=== PATIENT | male | born 1955 | race Caucasian/White ===

== ENCOUNTER 2016-07-12 18:49 | Inpatient (IN) | payer OTHER ==
[~2016-07-12] VITALS: Ht 175.3 cm; Wt 87.1 kg
[2016-07-12] MEDS ORDERED: ATOR40TA PO (19:20)
[2016-07-12] MEDS ORDERED: MORP-38 PO (19:20)
[2016-07-12] MEDS ORDERED: JANU50TA8 PO (19:20)
[2016-07-12] MEDS ORDERED: GLIM4TAB PO (19:20)
[2016-07-12] MEDS ORDERED: OXYC1SOL PO (19:20)
[2016-07-12] MEDS ORDERED: ASPI1TAB PO (19:20)
[2016-07-12] MEDS ORDERED: ASPIRIN 81 MG CHEW TABLET PO ONE (20:30)
[2016-07-12 20:45] LABS: BASO % 0.4 % (0.0-1.0); EOS # 0.1 K/mm3 (0.0-0.50); EOS % 1.3 % (0.0-3.0); LARGE UNSTAINED CELL # 0.1 K/mm3 (0.0-0.4); LARGE UNSTAINED CELL % 1.7 % (0.0-4.0); LYMPH # 1.2 K/mm3 (1.5-4.5); LYMPH % 17.6 % (24.0-44.0); MEAN CORPUSCULAR HGB CONC 34.7 g/dl (32.0-36.5); MEAN CORPUSCULAR VOLUME 92.4 fl (80.0-96.0); MONO # 0.5 K/mm3 (0.0-0.8); MONO % 7.1 % (0.0-5.0); NEUTROPHILS # 4.8 K/mm3 (1.8-7.7); PLATELET COUNT, AUTOMATED 157 k/mm3 (150-450); RED CELL DISTRIBUTION WIDTH 13.4 % (11.5-14.5); WHITE BLOOD COUNT 6.7 K/mm3 (4.0-10.0)
[2016-07-12 20:51] LABS: ANION GAP 8 MEQ/L (8-16); BLOOD UREA NITROGEN 10 MG/DL (7-18); CALCIUM LEVEL 8.6 MG/DL (8.8-10.2); CARBON DIOXIDE LEVEL 26 MEQ/L (21-32); CHLORIDE LEVEL 103 MEQ/L (98-107); CREATININE FOR GFR 1.22 MG/DL (0.70-1.30); GLOMERULAR FILTRATION RATE > 60.0 (>49); GLUCOSE, FASTING 313 MG/DL (80-110); POTASSIUM SERUM 4.4 MEQ/L (3.5-5.1); SODIUM LEVEL 137 MEQ/L (136-145)
--- NOTE | 2016-07-12 21:01 | REP ---
Clinical: Dizziness. Altered mental status. Comparison: 11/07/2013 . Findings: Age-related atrophy and microvascular ischemic changes are appreciated. The ventricles and sulci are symmetric. Nunez-white differentiation is maintained. There is no evidence for acute intracranial hemorrhage, mass/mass effect, pathology or infarction. No extra-axial fluid collection. Calvarium is intact. Paranasal sinuses and mastoid air cells are clear. Impression: Age related atrophy and microvascular ischemic changes. No acute intracranial hemorrhage, infarction, or mass/mass effect. Signed by Reginaldo Srinivasan MD 07/12/2016 08:53 P
[2016-07-12] MEDS ORDERED: methylPREDNISolone INJ 125 MG/2 ML VIAL (J2930) IV ONE (21:15)
[2016-07-12] MEDS ORDERED: diphenhydrAMINE INJ 50MG/ML VIAL (J1200) IV ONE (21:15)
[2016-07-12] MEDS ORDERED: FAMOTIDINE IV BAG 20 MG in APPROPRIATE DILUENT 1 EA IV ONE (21:15)
[2016-07-12] MEDS ORDERED: OXYC-517 PO (23:53)
[2016-07-12] MEDS ORDERED: ASPI81TAEC PO (23:53)
[2016-07-12] MEDS ORDERED: NITR4TASL SL (23:53)
[2016-07-12] MEDS ORDERED: INSULANT SC (23:53)
[2016-07-12] MEDS ORDERED: VITA100066 PO (23:53)
[2016-07-12] MEDS ORDERED: EPIP0.3I2 INJ (23:54)
[2016-07-13] VITALS (13 sets, daily range): BP systolic 96–176; BP diastolic 52–92
[2016-07-13] MEDS ORDERED: ISOVUE-370 76% 100ML VIAL (Q9967) As Ordered ONE (00:11)
[2016-07-13] MEDS ORDERED: ONDANSETRON 4MG/2ML VIAL (J2405) IV PRN (00:45)
--- NOTE | 2016-07-13 00:50 | REPUSA ---
CLINICAL HISTORY: Chest pain, exclude PE. TECHNIQUE: Multiple incremental axial, coronal and oblique images are obtained from the thoracic inle t to the upper abdomen. Intravenous contrast material was administered as per pulmonary embolism prot ocol. COMMENTS: There is excellent opacification of pulmonary arterial system without evidence for pulmonary embolism . Aorta is of normal caliber without evidence for dissection or aneurysm. There is no evidence of pleural or parenchymal mass. Bilateral basilar atelectatic pulmonary changes. There are no pleural effusions. There is no evidence of hilar or mediastinal lymphadenopathy. The he art and great vessels are within normal limits. Images of the upper abdomen demonstrate no evidence of adrenal mass. The bony structures are free of lytic or blastic lesions. Multilevel degenerative changes are seen in volving the visualized thoracolumbar spine. Moderate diffuse thyromegaly. Mild hepatomegaly. Mild splenomegaly. IMPRESSION: No evidence for pulmonary embolism. Bilateral basilar atelectatic pulmonary changes. Moderate diffuse thyromegaly. Mild hepatomegaly. Mild splenomegaly. Thank you for your kind referral of this patient.
[2016-07-13 01:00] LABS: MAGNESIUM LEVEL 1.9 MG/DL (1.8-2.4)
[2016-07-13] MEDS ORDERED: NS 1,000 ML IV SCH (01:09)
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
[2016-07-13] MEDS ORDERED: GLUCAGON FOR INJ 1 MG VIAL (J1610) SC PRN (01:30)
[2016-07-13] MEDS ORDERED: DEXTROSE 50% 50 ML SYRINGE IV PRN (01:30)
[2016-07-13] MEDS ORDERED: GLUCOSE 4 GM CHEW TABLET PO PRN (01:30)
[2016-07-13] MEDS ORDERED: MAG SULF 1GM/100ML (MAG RUN) 1 GM in APPROPRIATE DILUENT 1 EA IV ONE (01:45)
[2016-07-13] MEDS ORDERED: LISINOPRIL 5 MG TAB PO ONE (01:45)
[2016-07-13] MEDS ORDERED: LEVEMIR (INSULIN DETEMIR) 1 UNITS/0.01ML SC ONE (02:15)
[2016-07-13] MEDS: HumaLOG INSULIN (NovoLOG) PER UNIT SC SCH ×5 (02:20→21:34)
[2016-07-13 04:56] LABS: BASO % 0.3 % (0.0-1.0); EOS % 0.3 % (0.0-3.0); LARGE UNSTAINED CELL % 0.5 % (0.0-4.0); LYMPH # 0.6 K/mm3 (1.5-4.5); LYMPH % 12.1 % (24.0-44.0); MEAN CORPUSCULAR HEMOGLOBIN 31.5 pg (27.0-33.0); MEAN CORPUSCULAR HGB CONC 33.9 g/dl (32.0-36.5); MEAN CORPUSCULAR VOLUME 92.8 fl (80.0-96.0); MONO # 0.1 K/mm3 (0.0-0.8); MONO % 1.3 % (0.0-5.0); NEUTROPHILS # 4.5 K/mm3 (1.8-7.7); NEUTROPHILS % 85.5 % (36.0-66.0); PLATELET COUNT, AUTOMATED 151 k/mm3 (150-450); RED CELL DISTRIBUTION WIDTH 13.3 % (11.5-14.5); WHITE BLOOD COUNT 5.2 K/mm3 (4.0-10.0)
[2016-07-13 05:09] LABS: ALBUMIN 3.7 GM/DL (3.2-5.2); ALBUMIN/GLOBULIN RATIO 1.16 (1.00-1.93); ALKALINE PHOSPHATASE 104 U/L (45-117); ALT/SGPT 44 U/L (12-78); ANION GAP 12 MEQ/L (8-16); AST/SGOT 27 U/L (15-37); BILIRUBIN,TOTAL 0.5 MG/DL (0.2-1.0); BLOOD UREA NITROGEN 11 MG/DL (7-18); CALCIUM LEVEL 8.4 MG/DL (8.8-10.2); CARBON DIOXIDE LEVEL 24 MEQ/L (21-32); CHLORIDE LEVEL 105 MEQ/L (98-107); CREATININE FOR GFR 1.29 MG/DL (0.70-1.30); GLOMERULAR FILTRATION RATE > 60.0 (>49); GLUCOSE, FASTING 285 MG/DL (80-110); MAGNESIUM LEVEL 2.1 MG/DL (1.8-2.4); POTASSIUM SERUM 4.4 MEQ/L (3.5-5.1); SODIUM LEVEL 141 MEQ/L (136-145); TOTAL PROTEIN 6.9 GM/DL (6.4-8.2)
[2016-07-13 05:15] LABS: FREE T4 1.05 NG/DL (0.76-1.46)
[2016-07-13] MEDS ORDERED: MORPHINE 15 MG SA TAB PO ONE (05:30)
[2016-07-13] MEDS: HEPARIN SOD (PORCINE) 5000 UNITS/ML VIAL SQ SCH ×3 (05:35→21:42)
[2016-07-13] MEDS ORDERED: MORPHINE 15 MG SA TAB PO SCH ×2 (06:00→09:00)
--- NOTE | 2016-07-13 07:54 | REP ---
Clinical: chest pain . Comparison: 02/28/2015 . Findings: The mediastinum and cardiac silhouette are stable and within normal limits for portable technique. The lung johnson are clear without acute consolidation, effusion, or pneumothorax. Skeletal structures are intact. Impression: Normal portable chest x-ray Signed by Reginaldo Srinivasan MD 07/13/2016 07:45 A
[2016-07-13] MEDS: ASPIRIN 81 MG ENTERIC TAB PO SCH (08:32)
[2016-07-13] MEDS: ATORVASTATIN 20 MG TAB PO SCH (08:33)
[2016-07-13] MEDS: VITAMIN D 1,000 INTERNATIONAL UNITS TABLET PO SCH (08:33)
[2016-07-13] MEDS ORDERED: LORazepam 2 MG/ML VIAL (J2060) IV ONE (08:45)
[2016-07-13] MEDS ORDERED: LEVEMIR (INSULIN DETEMIR) 1 UNITS/0.01ML SC SCH (09:00)
--- NOTE | 2016-07-13 10:28 | ECGEPIP ---
Stationary ECG Study [facility] - ED Test Date: 2016-07-12 Pat Name: KEIKO FELDMAN Department: Room: [place] [address] Gender: M Environmental Associate: OzunaB: 1955 Requested By: Timur Contreras Order Number: [id number] Reading MD: Timur Venegas Measurements Intervals [place] Rate: 67 P: 24 VA: 150 QRS: -64 QRSD: 96 T: 15 QT: 423 QTc: 449 Interpretive Statements SINUS RHYTHM LAD PATTERN CONSISTENT WITH PULMONARY DISEASE LEFT ANTERIOR FASCICULAR BLOCK SIMILAR TO 03/01/15 Electronically Signed On 07-13-2016 10:27:59 EDT by Timur Venegas
--- NOTE | 2016-07-13 11:14 | REP ---
MRA BRAIN WITHOUT CONTRAST: HISTORY: Vertigo. 3D [id number] MR angiography was performed at the level of the [place]. There is no aneurysm or arteriovenous malformation. Mild atherosclerotic disease involves the cavernous internal carotid arteries. Major intracranial vessels are patent. The left vertebral artery is dominant. IMPRESSION: 1. There is no aneurysm or arteriovenous malformation. 2. Atherosclerotic disease as described above. Signed by Pepe Iniguez MD 07/13/2016 11:24 A
--- NOTE | 2016-07-13 11:18 | REP ---
MR BRAIN WITHOUT CONTRAST: HISTORY: Vertigo. COMPARISON: CT 07/12/2016 Several punctate areas of increased signal intensity on T2-weighted images are present in the subcortical white matter. This represents small vessel ischemic disease. Here is no intraparenchymal hemorrhage, infarct, mass or midline shift. The ventricular system and cortical sulci are dilated consistent with minimal volume loss. There is no extracerebral collection. A retention cyst is present in the right maxillary sinus. Mucosal thickening is present in the left maxillary sinus and right mastoid air cells. IMPRESSION: 1. Minimal small vessel ischemic disease. 2. Minimal volume loss. Signed by Pepe Iniguez MD 07/13/2016 11:24 A
[2016-07-13] MEDS: MORPHINE 15 MG SA TAB PO SCH ×2 (14:36→21:40)
--- NOTE | 2016-07-13 15:36 | IPN ---
DATE: 07/13/2016 Mr. Burr is feeling better this morning. He slept last night. He is not currently short of breath. He has no further vertigo or presyncopal sensations. Temperature 97.8, pulse 88, respiratory rate 18, blood pressure 102/58, 90% on two liters. He is awake, appropriately interactive, pleasantly conversant. Heart is in a regular rate and rhythm. No sections of arrhythmia on monitor. Abdomen is soft, active bowel sounds, nontender. No significant lower extremity edema. LABORATORY DATA: White cell count 5.2, hemoglobin 14.2. BUN 11, creatinine 1.29. Troponins negative times three. TSH 0.35. Brain MRI and MRA are remarkably unremarkable. ASSESSMENT: This is a 60-year-old who presented with palpitations, presyncopal episode, and perhaps vertigo associated with chest pain. PLAN: 1. Cardiovascular. Patient has had cardiac enzymes which are unremarkable. Continue on telemetry for monitoring. I have for old records from Dr. Burkett's office before considering the possibility of a cardiology consultation. Continuing aspirin and statin. We will hold his angiotensin-converting enzyme (PB) inhibitor as he appears to be somewhat orthostatic. 2. Diabetes. Patient is on Levemir and sliding scale insulin. 3. Patient has history of traumatic brain injury with left-sided weakness. Normal MRI/MRA. 4. Patient has chronic pain. I have adjusted his OxyContin scheduling to his schedule at home. 5. Patient has appropriate deep vein thrombosis (DVT) prophylaxis.
--- NOTE | 2016-07-13 19:28 | ECHO ---
DATE OF PROCEDURE: 07/13/2016 REFERRING PHYSICIAN: Adriel Roman MD. INDICATION: Chest pain. HEIGHT: 175 cm WEIGHT: 86 kg DIMENSIONS: IVS:1.0 LV: 3.9 LVPW: 1.0 LA: 3.0 Aorta: 2.4 FINDINGS: The study is of fair technical quality. Left ventricle is normal size and systolic function with estimated left ventricle ejection fraction (LVEF) 60-65%. I do not appreciate any segmental wall motion abnormalities. Right ventricle is normal size and systolic function. Both atria appear normal aortic valve is minimally sclerotic but has normal mobility. Mitral and tricuspid valves appear normal. Pulmonic valve was not well seen. Pericardial fat pad but no effusion is noted. Inferior vena cava is normal size. Aortic root is normal. Aortic arch is normal. Abdominal aorta was not well seen. Doppler interrogation of aortic valve reveals no stenosis or insufficiency. There is also no mitral stenosis or insufficiency. There is trace tricuspid insufficiency. Calculated pulmonary artery pressure is within normal limits. Mitral inflow pattern and tissue Doppler imaging of mitral annulus reveal grade 1 diastolic dysfunction. E-velocity 71.8 cm/sec, E-prime septal velocity is 5.5 cm/sec and E-prime lateral is 7.0 cm/sec. CONCLUSIONS: 1. Study is of fair technical quality. 2. Normal left ventricle (LV) size and systolic function, grade 1 diastolic dysfunction. 3. No significant valvular disease. 4. Normal central venous pressure and probably normal pulmonary artery pressure. COMMENT: Subacute bacterial endocarditis (SBE) prophylaxis is not recommended.
[2016-07-14] VITALS (8 sets, daily range): BP systolic 117–157; BP diastolic 66–88
[2016-07-14 05:25] LABS: BASO % 0.1 % (0.0-1.0); EOS % 0.2 % (0.0-3.0); LARGE UNSTAINED CELL # 0.2 K/mm3 (0.0-0.4); LARGE UNSTAINED CELL % 1.4 % (0.0-4.0); LYMPH # 1.7 K/mm3 (1.5-4.5); LYMPH % 10.7 % (24.0-44.0); MEAN CORPUSCULAR HGB CONC 34.4 g/dl (32.0-36.5); MEAN CORPUSCULAR VOLUME 93.2 fl (80.0-96.0); MONO # 0.8 K/mm3 (0.0-0.8); MONO % 5.5 % (0.0-5.0); NEUTROPHILS # 11.3 K/mm3 (1.8-7.7); PLATELET COUNT, AUTOMATED 154 k/mm3 (150-450); RED CELL DISTRIBUTION WIDTH 13.7 % (11.5-14.5); WHITE BLOOD COUNT 13.8 K/mm3 (4.0-10.0)
[2016-07-14 05:31] LABS: ALBUMIN 3.5 GM/DL (3.2-5.2); ALBUMIN/GLOBULIN RATIO 1.09 (1.00-1.93); ALKALINE PHOSPHATASE 99 U/L (45-117); ALT/SGPT 37 U/L (12-78); ANION GAP 9 MEQ/L (8-16); AST/SGOT 20 U/L (15-37); BILIRUBIN,TOTAL 0.3 MG/DL (0.2-1.0); CALCIUM LEVEL 8.6 MG/DL (8.8-10.2); CARBON DIOXIDE LEVEL 27 MEQ/L (21-32); CHLORIDE LEVEL 103 MEQ/L (98-107); CREATININE FOR GFR 1.21 MG/DL (0.70-1.30); GLOMERULAR FILTRATION RATE > 60.0 (>49); GLUCOSE, FASTING 300 MG/DL (80-110); MAGNESIUM LEVEL 2.1 MG/DL (1.8-2.4); POTASSIUM SERUM 4.3 MEQ/L (3.5-5.1); SODIUM LEVEL 139 MEQ/L (136-145); TOTAL PROTEIN 6.7 GM/DL (6.4-8.2)
[2016-07-14 05:44] LABS: BLOOD UREA NITROGEN 20 MG/DL (7-18)
[2016-07-14] MEDS: HEPARIN SOD (PORCINE) 5000 UNITS/ML VIAL SQ SCH ×3 (06:13→21:03)
[2016-07-14] MEDS: MORPHINE 15 MG SA TAB PO SCH ×3 (06:14→21:06)
[2016-07-14] MEDS: oxyCODONE 5MG TAB PO PRN ×2 (06:14→21:06)
[2016-07-14] MEDS: HumaLOG INSULIN (NovoLOG) PER UNIT SC SCH ×4 (07:35→21:04)
[2016-07-14] MEDS: ASPIRIN 81 MG ENTERIC TAB PO SCH (08:53)
[2016-07-14] MEDS: VITAMIN D 1,000 INTERNATIONAL UNITS TABLET PO SCH (08:54)
[2016-07-14] MEDS: ATORVASTATIN 20 MG TAB PO SCH (08:54)
[2016-07-14] MEDS: LEVEMIR (INSULIN DETEMIR) 1 UNITS/0.01ML SC SCH (08:55)
[2016-07-14] MEDS ORDERED: LISINOPRIL 5 MG TAB PO SCH (09:00)
--- NOTE | 2016-07-14 10:03 | REP ---
CAROTID DUPLEX ULTRASOUND: 07/13/2016. Clinical history: Syncope. No prior study. Findings: Standard duplex techniques show the right common carotid with some intimal thickening and scattered soft plaque. There is some mixed plaque at the bulb and proximal ICA. The left CCA shows intimal thickening with some soft plaque at the bulb and mixed plaque posteriorly at the bulb. RIGHT LEFT CCA systolic 1.05 1.12 m/s ICA systolic 0.83 0.71 ICA diastolic 0.21 0.17 ECA systolic 1.18 1.09 ICA/CCA Ratio 0.79 0.63 Cranial direction in flow was observed in both vertebral arteries. The Doppler waveform analysis shows no spectral broadening or filling in of the systolic window for either internal carotid. Impression: 1. Bilateral mild carotid stenosis (less than 50% stenosis). There is mixed plaque in the bulb and proximal ICA bilaterally but no hemodynamically significant or flow restricting lesion. The Doppler waveform analysis without any significant finding. 2. Cranial directional of flow vertebral arteries. Signed by Bakari Sánchez MD 07/14/2016 05:05 P
--- NOTE | 2016-07-14 14:03 | IPN ---
DATE: 07/14/2016 Mr. Burr is feeling a little more comfortable than he did when he came in. He has no chest pain. He is still having a sensation of lightheadedness with position change. He has been tolerating diet. He says he does feel better than when he arrived. Temperature most recently was 98.3, pulse 66, respiratory rate 18, blood pressure is 133/75. Intake and output negative fluid status, -190. Weight is 86.2. He is awake, appropriately interactive. Pleasantly conversant. Discussing the various techniques of performing orthostatic vital signs. Mucous membranes moist. Neck is supple. Breathing is symmetrically diminished. Heart is distant sounding. Radial pulses are 2+. Capillary refill is less than 2 seconds. Abdomen is soft. White cell count 13.8, hemoglobin 13.4, and platelets of 154. BUN 20, creatinine 1.2. Vascular ultrasound of the carotids showed no significant findings. My assessment is as follows: 60-year-old who presented with palpitations, presyncopal episode, chest pain, and perhaps vertigo. Plan is as follows: 1. Cardiovascular. The patient's cardiac enzymes have been unremarkable. There has not been any significant arrhythmia on the monitor. I have reviewed old records from Dr. Burkett' office. There appears to have been a plan to repeat stress tests sometime within the last year. The patient would appear to benefit from further diagnostic workup in the form of stress test. I am unsure about the appropriate timing of this. I will discuss this with a consulting cyber forensics analyst as able. We are currently holding his PB inhibitor as he is continuing to be orthostatic. He may benefit from tilt table testing as well as midodrine in the short term. 2. The patient has diabetes on Levemir and sliding scale. 3. The patient has a history of traumatic brain injury (TBI) and left sided weakness. The possibility of vertigo was considered and I did discuss vestibular physical therapy with the therapist today. I would hope to be able to get some diagnostic and perhaps therapeutic yield from that. 4. The patient has appropriate deep vein thrombosis (DVT) prophylaxis.
[2016-07-14] MEDS: diphenhydrAMINE 25 MG CAP PO PRN ×2 (15:49→23:47)
[2016-07-15] VITALS: BP 140/85
[2016-07-15 04:00] VITALS: BP 121/72
[2016-07-15 05:06] LABS: BASO # 0.1 K/mm3 (0.0-0.2); BASO % 0.7 % (0.0-1.0); EOS # 0.2 K/mm3 (0.0-0.50); EOS % 2.7 % (0.0-3.0); LARGE UNSTAINED CELL # 0.2 K/mm3 (0.0-0.4); LARGE UNSTAINED CELL % 1.8 % (0.0-4.0); LYMPH # 2.9 K/mm3 (1.5-4.5); LYMPH % 35.6 % (24.0-44.0); MEAN CORPUSCULAR HEMOGLOBIN 31.3 pg (27.0-33.0); MEAN CORPUSCULAR HGB CONC 33.6 g/dl (32.0-36.5); MEAN CORPUSCULAR VOLUME 93.1 fl (80.0-96.0); MONO # 0.6 K/mm3 (0.0-0.8); MONO % 7.8 % (0.0-5.0); NEUTROPHILS # 4.2 K/mm3 (1.8-7.7); NEUTROPHILS % 51.4 % (36.0-66.0); PLATELET COUNT, AUTOMATED 159 k/mm3 (150-450); RED CELL DISTRIBUTION WIDTH 13.6 % (11.5-14.5); WHITE BLOOD COUNT 8.1 K/mm3 (4.0-10.0)
[2016-07-15 05:36] LABS: ALBUMIN 3.5 GM/DL (3.2-5.2); ALBUMIN/GLOBULIN RATIO 1.06 (1.00-1.93); ALKALINE PHOSPHATASE 85 U/L (45-117); ALT/SGPT 54 U/L (12-78); ANION GAP 7 MEQ/L (8-16); AST/SGOT 41 U/L (15-37); BILIRUBIN,TOTAL 0.5 MG/DL (0.2-1.0); BLOOD UREA NITROGEN 20 MG/DL (7-18); CALCIUM LEVEL 8.1 MG/DL (8.8-10.2); CARBON DIOXIDE LEVEL 28 MEQ/L (21-32); CHLORIDE LEVEL 105 MEQ/L (98-107); CREATININE FOR GFR 1.15 MG/DL (0.70-1.30); GLOMERULAR FILTRATION RATE > 60.0 (>49); GLUCOSE, FASTING 150 MG/DL (80-110); MAGNESIUM LEVEL 2.1 MG/DL (1.8-2.4); POTASSIUM SERUM 4.2 MEQ/L (3.5-5.1); SODIUM LEVEL 140 MEQ/L (136-145); TOTAL PROTEIN 6.8 GM/DL (6.4-8.2)
[2016-07-15] MEDS: MORPHINE 15 MG SA TAB PO SCH ×2 (06:08→14:10)
[2016-07-15] MEDS: HEPARIN SOD (PORCINE) 5000 UNITS/ML VIAL SQ SCH ×2 (06:08→14:00)
[2016-07-15 08:00] VITALS: BP_SYST 103; BP_SYST 107; BP_SYST 115; BP_DIAS 62; BP_DIAS 64; BP_DIAS 71
[2016-07-15] MEDS: HumaLOG INSULIN (NovoLOG) PER UNIT SC SCH ×2 (08:30→11:58)
[2016-07-15] MEDS: LEVEMIR (INSULIN DETEMIR) 1 UNITS/0.01ML SC SCH (08:31)
[2016-07-15] MEDS: ATORVASTATIN 20 MG TAB PO SCH (08:31)
[2016-07-15] MEDS: VITAMIN D 1,000 INTERNATIONAL UNITS TABLET PO SCH (08:31)
[2016-07-15] MEDS: ASPIRIN 81 MG ENTERIC TAB PO SCH (08:31)
--- NOTE | 2016-07-15 09:25 | CR ---
DATE OF CONSULTATION: 07/15/2016 Dr. Gonzalez is asking me to see Mr. Burr for episodes of near syncope and dizziness. HISTORY OF PRESENT ILLNESS: Mr. Burr is a very pleasant 60-year-old male who has established coronary artery disease. He was previously followed by Dr. Burkett's office but he would prefer to be followed in our office because he says he did not click with the attending staff. He came to [facility] on July 12 after he suffered a near syncopal event at home. He tells me that for approximately a month, he has had episodes when he would feel slight chest discomfort, diaphoresis and shortness of breath and sensation of dizziness. They typically last only a minute or two and do not occur very often maybe two or three times a week. This particular time he had a similar episode it, yet it felt a little bit different. It was more prolonged and the symptoms were more severe but fundamentally similar. Eventually when this sensation calmed down a little bit, he attempted to stand up and walk over to the kitchen. As he did so, he became very dizzy and lightheaded and actually collapsed to the floor. 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 He was brought to evaluation to hospital but really no abnormality was found. No arrhythmias were detected after more than 2 days of monitoring, he ruled out for myocardial infarction. There were no ischemic abnormalities on EKG. He had an echocardiogram that was essentially normal and he had a carotid ultrasound that did not reveal any obstructive disease but yet, for following two days, he got very symptomatic upon sitting/ standing up. He got dizzy and lightheaded and even though his blood pressure did not drop very significantly on numerous orthostatic measurements, he became tachycardic upon sitting up. Consequently the PB inhibitor was discontinued and today he tells me he feels much better. He already stood up and felt better and he is ready to try walking. PAST MEDICAL HISTORY: 1. Coronary artery disease. He had several interventions to LAD and first diagonal and has numerous stents. His last nuclear stress test was treadmill SPECT in January 2014 where he demonstrated good exertional tolerance of 10 metabolic equivalents, had normal perfusion and normal systolic function. 2. Type 2 diabetes since 1991. 3. History of traumatic brain injury. It appears that he was in facility for many months if not over a year, need to learn to walk again and also had to learn to speak again, it was in 1991. 4. Hypertension. 5. History of depression. 6. History of nephrolithiasis. SURGICAL HISTORY: 1. Positive for lipoma resection from leg. 2. Bowel resection. 3. Eye surgery. 4. Shoulder arthroscopy. 5. Bilateral cataract surgery. 6. Colonoscopies. OUTPATIENT MEDICATIONS: - atorvastatin 40 a day - nitroglycerin as needed virtually never using - vitamin D, - Lantus insulin - Janumet 550/1000 twice a day - Centrum Silver - oxycodone - glimepiride four a day - aspirin 81 a day - lisinopril 5 mg a day - Benadryl at bedtime He reports intolerance to Dilaudid that causes anaphylaxis and post contact dermatitis. Nickel contact dermatitis and oxycodone. SOCIAL HISTORY: The patient is . 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 Does not smoke, does not drink alcohol. FAMILY HISTORY: Father had coronary artery disease and mother had hypercholesterolemia. On the review of systems, there is no history of recent fever, chills, nausea, vomiting or diarrhea. There is no prior history of stroke, but he had traumatic brain injury that left him with a left-sided very slight hemiparesis. He does have glasses. There is no recent chest discomfort that would last more than a few seconds. He has had chronic intermittent PVCs including brief episodes of bigeminy that is typically quite symptomatic. No bleeding problems. No peripheral edema. No prior acute episode of syncope or near syncope. PHYSICAL EXAMINATION: Mr. Burr is a middle-aged man who appears approximately his age, very pleasant, he is missing his upper plate but teeth are otherwise intact. Blood pressure this morning supine 103/63, sitting 107/71 and standing 103/64. He is afebrile. Saturation 93% room air. He is alert and oriented, appropriate. His JVP is not elevated. Lungs are clear to auscultation. Heart exam regular rhythm. No gallop, rub or murmur. Abdomen is soft, nontender. Hepatosplenomegaly. Extremities: Free of edema. Good peripheral pulses. He has very slight weakness of the left side, I can barely appreciate it. No skin lesions. LABORATORY: Normal basic metabolic panel with the exception of glucose 313 on admission. For most part, his morning glucose is not well-controlled throughout hospitalization. Normal cardiac enzymes. Normal TSH. CBC also within normal limits. His urine toxicology screen is pending. He had neuro imaging which is unchanged from before and reports some minimal volume loss consistent with his age. CT angiography of the chest that was negative for pulmonary embolism but did reveal hepatosplenomegaly. There are also some degenerative abnormalities of his spine. 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 There was no complex ectopy detected on telemetry monitoring, just scattered PVCs. ASSESSMENT/PLAN: Per history, it appears that Mr. Burr symptoms are decidedly orthostatic even though there was never documented really profound drop in blood pressure upon standing up, he does become more tachycardiac and there is relatively subtle drop in blood pressure. It appears that his symptoms improved quite markedly after PB inhibitor was discontinued. At this point, I would let the patient ambulate and provided he feels well enough, I do not have any objections to discharge. I would indeed discontinue his chronic PB inhibitor, he has been taking a relatively small dose anyhow. I will plan to perform an outpatient stress test to make sure there is not an ischemic component to this because he does have brief episodes of chest discomfort but my suspicion is relatively low. If this should not be sufficient intervention, then I would advocate use of elastic stockings during the day and liberate salt intake. If he continues to have symptoms that continue to be orthostatic by history, we can consider using medication to raise his blood pressure but I am certainly quite reluctant to pursue that route immediately. Thank you for this consultation. I will bring patient for followup in our office. MANJULA
[2016-07-15 12:00] VITALS: BP 111/72
--- NOTE | 2016-07-15 19:40 | DSES ---
DATE OF ADMISSION: 07/13/2016 DATE OF DISCHARGE: 07/15/2016 SPECIALISTS INVOLVED IN CARE: Include Dr. Olsen. COMPLICATIONS: No complications of stay. PROCEDURES: No procedures performed during her stay. DISCHARGE DIAGNOSES: 1. Orthostatic hypotension. 2. Coronary artery disease status post stents. 3. Type 2 diabetes. 4. Traumatic brain injury. 5. Depression. 6. Nephrolithiasis. 7. Possible vertigo. SUMMARY OF HOSPITALIZATION: This is a 60-year-old who presented with chest pain, shortness of breath, palpitations. Was admitted to the hospitalist service on telemetry unit. Had negative troponins. No significant arrhythmia on monitor. Old records were reviewed from Dr. Burkett' office, which he described as vertiginous but appeared to be orthostatic. Was seen in consultation by Dr. Olsen, who will follow the patient in the outpatient setting. Plan is to minimize his antihypertensives and liberalize salt in his diet. On day of discharge, temperature 98.3, pulse 68, respiratory rate 20, blood pressure 111/72, 93% on room air. Awake, alert, appropriately interactive. Heart is in a regular rate and rhythm. Abdomen soft, doughy, nontender. White cell count 8.1, hemoglobin 14. BUN 20, creatinine 1.15. During the course of his stay he had a CT scan of his chest, which showed no evidence of pulmonary embolism, mild hepatomegaly, mild splenomegaly. A brain MRI, which showed minimal small-vessel ischemic disease. Brain MRA, which was relatively unremarkable. Vascular ultrasound, which showed bilateral mild carotid stenosis, less than 50%. DISCHARGE INSTRUCTIONS: Include the following: Followup with Dr. Olsen's office per his instructions. Activity as tolerated. Return to work 07/21/2016. Regular diet. No salt restriction. Continue aspirin 81 mg by mouth daily, atorvastatin 40 mg by mouth daily, vitamin D 2000 units by mouth daily, Epi-Pen as needed, glimepiride 4 mg by mouth daily, Lantus 25 units daily, morphine ER15 mg by mouth twice daily, sublingual nitroglycerine, as-needed oxycodone 5 mg by mouth twice daily as needed for pain, and Janumet one tablet by mouth twice daily.
== END 2016-07-15 14:45 | disposition home or self-care (01) | DRG 312 ==
LOC: M ED 20:18 → M ED INP 07-13 00:37 → M ICU 07-13 01:57
PROVIDERS: ADMIT Internal Medicine; ATTEND Internal Medicine
DX: I95.1 Orthostatic hypotension (principal); G81.94 Hemiplegia, unspecified affecting left nondominant side; I25.10 Atherosclerotic heart disease of native coronary artery without angina pectoris; E11.9 Type 2 diabetes mellitus without complications; F32.9 Major depressive disorder, single episode, unspecified; N20.0 Calculus of kidney; R42 Dizziness and giddiness; I10 Essential (primary) hypertension; I44.4 Left anterior fascicular block; Z79.899 Other long term (current) drug therapy; Z79.4 Long term (current) use of insulin; Z79.82 Long term (current) use of aspirin

== ENCOUNTER → 2017-01-06 | Outpatient (REF) ==
[~2017-01-06] MED LIST: ASPI1TAB PO; ASPI81TAEC PO; ATOR40TA75 PO; EPIP0.3I2 INJ; GLIM4TAB PO; INSULANT SC; JANU50TA8 PO; MORP-38 PO; NITR4TASL SL; OXYC-517 PO; OXYC1SOL3 PO; VITA100066 PO
--- NOTE | 2017-01-06 18:19 | REP ---
Lumbar spine series: Five views. History: Removed degenerative joint disease or disc herniation. Findings: Standing five view lumbar spine series is obtained as requested. There is minimal anterior wedging at the T12 vertebral body, which appears to be old. There are degenerative disc changes at T11-12. Degenerative disc disease is also noted at L1-2, L2-3, L3-4, and L5-S1. There is minimal narrowing at L4-5 as well. Vascular calcification is seen in a normal caliber aorta. No malalignment is seen. Pedicles and posterior elements are intact. There is no evidence of spondylolysis or spondylolisthesis. There is osteoarthritic facet sclerosis and hypertrophy bilaterally at L5-S1 and to some degree at L4-5. Psoas margins are symmetric. Sacrum and SI joints are unremarkable. There is a surgical clip in the left pelvis. Impression: Degenerative disc and osteoarthritic facet changes. Signed by Camacho Martinez MD 01/07/2017 08:07 A
--- NOTE | 2017-01-06 18:22 | REP ---
Cervical spine series: Eight views standing. History: Severe degenerative disc disease versus disc herniation. Findings: Lateral views done in flexion/extension and neutral position show preserved vertebral body heights in the cervical spine and normal alignment. There is degenerative disc disease with narrowing and spur formation at C4-5, C5-6 and C6-7. No subluxation or instability is seen. Open mouth odontoid view is unremarkable. AP view shows mild facet hypertrophy in the mid cervical spine, most pronounced on the right at C3-4. Oblique images demonstrate right-sided uncovertebral spurring producing neural foraminal encroachment at C3-4, C4-5 and to some degree at C5-6. On the left, there is mild uncovertebral spurring at C5-6. Swimmers lateral view shows no additional abnormality. Impression: Degenerative spondylosis changes. Multilevel neural foraminal narrowing as above. Signed by Camacho Martinez MD 01/07/2017 08:07 A
== END ==
LOC: M RAD 11:25
PROVIDERS: ATTEND Internal Medicine
DX: M50.90 Cervical disc disorder, unspecified, unspecified cervical region (principal)

== ENCOUNTER 2017-05-27 13:54 | Emergency (ER) | payer OTHER ==
[2017-05-27] MEDS: NITROGLYCERIN 0.4 MG SUBL TABLET SL (14:38)
[2017-05-27 14:54] LABS: BASO % 0.5 % (0.0-1.0); EOS # 0.2 10^3/uL (0.0-0.50); EOS % 1.9 % (0.0-3.0); HEMATOCRIT 40.3 % (42.0-52.0); HEMOGLOBIN 14.1 g/dl (14.0-18.0); IMMATURE GRANULOCYTE % 0.6 % (0-3.0); LYMPH # 2.2 10^3/uL (1.5-4.5); LYMPH % 26.6 % (24.0-44.0); MEAN CORPUSCULAR HEMOGLOBIN 32.4 pg (27.0-33.0); MEAN CORPUSCULAR VOLUME 92.6 fl (80.0-96.0); MONO # 0.9 10^3/uL (0.0-0.8); MONO % 10.8 % (0.0-5.0); NEUTROPHILS # 4.9 10^3/uL (1.8-7.7); NEUTROPHILS % 59.6 % (36.0-66.0); PLATELET COUNT, AUTOMATED 158 10^3/uL (150-450); RED BLOOD COUNT 4.35 10^6/uL (4.30-6.10); RED CELL DISTRIBUTION WIDTH 13.5 % (11.5-14.5); WHITE BLOOD COUNT 8.2 10^3/uL (4.0-10.0)
[2017-05-27 15:03] LABS: INR 1.08; PROTHROMBIN TIME 14.2 SECONDS (12.4-14.5)
[2017-05-27 15:16] LABS: ALBUMIN 4.1 GM/DL (3.2-5.2); ALBUMIN/GLOBULIN RATIO 1.37 (1.00-1.93); ALKALINE PHOSPHATASE 94 U/L (45-117); ALT/SGPT 55 U/L (12-78); ANION GAP 9 MEQ/L (8-16); AST/SGOT 44 U/L (7-37); BILIRUBIN,DIRECT 0.2 MG/DL (0.0-0.2); BILIRUBIN,TOTAL 0.7 MG/DL (0.2-1.0); BLOOD UREA NITROGEN 17 MG/DL (7-18); CARBON DIOXIDE LEVEL 26 MEQ/L (21-32); CHLORIDE LEVEL 105 MEQ/L (98-107); CPK CREATINE PHOSPHOKINASE 197 U/L (39-308); CREATININE FOR GFR 1.12 MG/DL (0.70-1.30); GLOMERULAR FILTRATION RATE > 60.0 (>49); GLUCOSE, FASTING 116 MG/DL (70-100); LIPASE 182 U/L (73-393); POTASSIUM SERUM 4.4 MEQ/L (3.5-5.1); SODIUM LEVEL 140 MEQ/L (136-145); TOTAL PROTEIN 7.1 GM/DL (6.4-8.2); TROPONIN I < 0.02 NG/ML (< 0.10)
[2017-05-27 15:18] LABS: NT-PRO BNP 38 PG/ML (<125)
[2017-05-27 15:22] LABS: CK-MB VALUE MASS 2.3 NG/ML (0.0-3.6); MB/CK RELATIVE INDEX 1.16 (< OR =4)
[2017-05-27] MEDS ORDERED: ISOVUE-370 76% 100ML VIAL (Q9967) As Ordered (15:50)
[2017-05-27] MEDS: diphenhydrAMINE 50 MG CAP PO (16:30)
[2017-05-27 19:12] LABS: BEDSIDE GLUCOSE 241 MG/DL (80-115)
[2017-05-27 21:29] LABS: CPK CREATINE PHOSPHOKINASE 161 U/L (39-308); TROPONIN I < 0.02 NG/ML (< 0.10)
[2017-05-27 21:31] LABS: CK-MB VALUE MASS 1.9 NG/ML (0.0-3.6); MB/CK RELATIVE INDEX 1.18 (< OR =4)
== END 2017-05-27 22:12 | disposition home or self-care (01) ==
LOC: M ED 13:54
DX: R07.9 Chest pain, unspecified (principal); E01.0 Iodine-deficiency related diffuse (endemic) goiter; R06.02 Shortness of breath; I25.10 Atherosclerotic heart disease of native coronary artery without angina pectoris; I11.9 Hypertensive heart disease without heart failure; E11.9 Type 2 diabetes mellitus without complications; F32.9 Major depressive disorder, single episode, unspecified; Z95.5 Presence of coronary angioplasty implant and graft; Z88.5 Allergy status to narcotic agent; Z91.018 Allergy to other foods; Z79.899 Other long term (current) drug therapy; Z79.4 Long term (current) use of insulin; Z79.82 Long term (current) use of aspirin; Z79.891 Long term (current) use of opiate analgesic
CPT/HCPCS: Q9967

== ENCOUNTER 2017-12-09 08:34 | Outpatient (CLI) | payer OTHER ==
[2017-12-09 11:47] LABS: BEDSIDE GLUCOSE 92 MG/DL (80-115)
== END 2017-12-09 14:30 | disposition home or self-care (01) ==
LOC: M RAD 08:34
DX: I63.09 Cerebral infarction due to thrombosis of other precerebral artery (principal); I67.82 Cerebral ischemia
CPT/HCPCS: 70551

== ENCOUNTER 2017-12-12 09:38 | Outpatient (CLI) | payer OTHER ==
[2017-12-12] MEDS ORDERED: KETAMINE HCL 200 MG/20 ML VIAL As Ordered (09:44)
[2017-12-12] MEDS ORDERED: fentaNYL 100 MCG/2 ML INJECTION (J3010) As Ordered (09:44)
[2017-12-12] MEDS ORDERED: PROPOFOL 200 MG/20 ML VIAL As Ordered ×2 (09:44→14:25)
[2017-12-12] MEDS ORDERED: MIDAZOLAM INJ 2 MG/2 ML VIAL (J2250) As Ordered ×3 (09:45)
[2017-12-12 10:30] LABS: BEDSIDE GLUCOSE 131 MG/DL (80-115)
== END 2017-12-12 12:55 | disposition home or self-care (01) ==
LOC: M RAD 09:38
DX: M47.12 Other spondylosis with myelopathy, cervical region (principal); M51.25 Other intervertebral disc displacement, thoracolumbar region; E07.89 Other specified disorders of thyroid
CPT/HCPCS: J2250

== ENCOUNTER 2018-04-28 09:22 | Day surgery (SDC) | payer OTHER ==
[~2018-04-28] VITALS: Ht 175.3 cm; Wt 90.3 kg
[~2018-04-28 09:22] MED LIST changes: +ALLO10TA PO; +BENA25CA4 PO; +COQ1100C PO; +LIDOCAINE 2% INJ 100 MG/5 ML SDV (FOR ANES.) As Ordered ONE; +MORP15TA2 PO; +MULTCAP PO; +NS 1,000 ML IV ONE; +PROPOFOL 200 MG/20 ML VIAL As Ordered ONE; +SERT-155 PO
[2018-04-28] MEDS ORDERED: CELE1CAP9 PO (10:27)
--- NOTE | 2018-04-28 11:15 | ROOR ---
Patient Name: Seymour Burr Procedure Date: 04/28/2018 11:00 AM Date of : 1955 Age: 62 Room: [facility] Gender: Male Note Status: Finalized Procedure: Upper Endoscopy + Biopsies Indications: Heartburn, Exclusion of Delacruz's esophagus Providers: Steven Abbott MD Referring MD: [facility], Admin. Requesting Provider: Medicines: Monitored Anesthesia Care Complications: No immediate complications. Procedure: Pre-Anesthesia Assessment: - The heart rate, respiratory rate, oxygen saturations, blood pressure, adequacy of pulmonary ventilation, and response to care were monitored throughout the procedure. The Endoscope was introduced through the mouth, and advanced to the second part of duodenum. The upper GI endoscopy was accomplished without difficulty. The patient tolerated the procedure well. Findings: The Z-line was regular and was found 40 cm from the incisors. Multiple biopsies were obtained with cold forceps for evaluation to rule out Delacruz's Esophagus randomly at the gastroesophageal junction. No other significant abnormalities were identified in a careful examination of the stomach. The exam of the duodenum was otherwise normal. Impression: - Z-line regular, 40 cm from the incisors. - Multiple biopsies were obtained at the gastroesophageal junction. - The examination was otherwise normal. Recommendation: - Patient has a contact number available for emergencies. The signs and symptoms of potential delayed complications were discussed with the patient. Return to normal activities tomorrow. Written discharge instructions were provided to the patient. - High fiber diet. - Discharge patient to home. - Continue present medications. - Await pathology results. - Telephone GI clinic for pathology results in 1 week. - Check Portal Online for Path Results.([email or web address] - Return to referring physician. - The findings and recommendations were discussed with the patient's family. Steven Abbott MD Steven Abbott MD 04/28/2018 11:15:13 AM This report has been signed electronically. Number of Addenda: 0 Note Initiated On: 04/28/2018 11:00 AM Estimated Blood Loss: Estimated blood loss: none.
--- NOTE | 2018-04-28 11:43 | ROOR ---
Patient Name: Seymour Burr Procedure Date: 04/28/2018 11:01 AM Date of : 1955 Age: 62 Room: [facility] Gender: Male Note Status: Finalized Procedure: Total Colonoscopy to Cecum + Cold Snare Polypectomy Indications: High risk colon cancer surveillance: Personal history of colonic polyps Providers: Steven Abbott MD Referring MD: [facility], Admin. Requesting Provider: Medicines: Monitored Anesthesia Care Complications: No immediate complications. Procedure: Pre-Anesthesia Assessment: - The heart rate, respiratory rate, oxygen saturations, blood pressure, adequacy of pulmonary ventilation, and response to care were monitored throughout the procedure. The Colonoscope was introduced through the anus and advanced to the cecum, identified by appendiceal orifice and ileocecal valve. The colonoscopy was performed without difficulty. The patient tolerated the procedure well. The quality of the bowel preparation was excellent. Findings: The perianal and digital rectal examinations were normal. Non-bleeding internal hemorrhoids were found during retroflexion. The hemorrhoids were Grade I (internal hemorrhoids that do not prolapse). Multiple small-mouthed diverticula were found in the recto-sigmoid colon, sigmoid colon and descending colon. There was evidence of a prior end-to-end colo-colonic anastomosis at 30 cm proximal to the anus. This was patent and was characterized by visible sutures. The anastomosis was traversed. A small polyp was found at 30 cm proximal to the anus. The polyp was sessile. The polyp was removed with a cold snare. Resection and retrieval were complete. The exam was otherwise without abnormality on direct and retroflexion views. Impression: - Non-bleeding internal hemorrhoids. - Diverticulosis in the recto-sigmoid colon, in the sigmoid colon and in the descending colon. - Patent end-to-end colo-colonic anastomosis, characterized by visible sutures. - One small polyp at 30 cm proximal to the anus, removed with a cold snare. Resected and retrieved. - The examination was otherwise normal on direct and retroflexion views. - The exam was otherwise normal to the cecum. Recommendation: - Patient has a contact number available for emergencies. The signs and symptoms of potential delayed complications were discussed with the patient. Return to normal activities tomorrow. Written discharge instructions were provided to the patient. - High fiber diet. - Discharge patient to home. - Continue present medications. - Await pathology results. - Telephone GI clinic for pathology results in 1 week. - Repeat colonoscopy in 5 years for surveillance. - Return to referring physician. - The findings and recommendations were discussed with the patient's family. Steven Abbott MD Steven Abbott MD 04/28/2018 11:43:43 AM This report has been signed electronically. Number of Addenda: 0 Note Initiated On: 04/28/2018 11:01 AM Estimated Blood Loss: Estimated blood loss: none.
[2018-04-28 12:07] VITALS: BP 121/63
== END 2018-04-28 12:07 | disposition home or self-care (01) ==
LOC: M OPP 09:22
PROVIDERS: ATTEND Internal Medicine Gastroenterology
DX: Z86.010 Personal history of colon polyps (principal); K64.0 First degree hemorrhoids; K57.30 Diverticulosis of large intestine without perforation or abscess without bleeding; D12.6 Benign neoplasm of colon, unspecified; R12 Heartburn; Z91.018 Allergy to other foods; Z79.82 Long term (current) use of aspirin; Z79.891 Long term (current) use of opiate analgesic; Z79.899 Other long term (current) drug therapy

== ENCOUNTER 2018-10-11 15:52 | Emergency (ER) | payer OTHER ==
[~2018-10-11] VITALS: Ht 175.3 cm; Wt 86.4 kg
[~2018-10-11 15:52] MED LIST changes: -ASPI1TAB PO; +ASPI81TA26 PO; +CELE1CAP9 PO; -LIDOCAINE 2% INJ 100 MG/5 ML SDV (FOR ANES.) As Ordered ONE; -NS 1,000 ML IV ONE; -PROPOFOL 200 MG/20 ML VIAL As Ordered ONE
[2018-10-11 16:15] LABS: BASO # 0.1 10^3/uL (0.0-0.2); BASO % 0.7 % (0.0-1.0); EOS # 0.3 10^3/uL (0.0-0.50); EOS % 3.5 % (0.0-3.0); HEMATOCRIT 37.3 % (42.0-52.0); HEMOGLOBIN 12.8 g/dl (13.5-17.5); LYMPH # 1.8 10^3/uL (1.5-4.5); LYMPH % 23.4 % (24.0-44.0); MEAN CORPUSCULAR HEMOGLOBIN 32.2 pg (27.0-33.0); MEAN CORPUSCULAR HGB CONC 34.3 g/dl (32.0-36.5); MONO # 0.7 10^3/uL (0.0-0.8); MONO % 9.4 % (0.0-5.0); NEUTROPHILS # 4.8 10^3/uL (1.8-7.7); NEUTROPHILS % 62.3 % (36.0-66.0); PLATELET COUNT, AUTOMATED 148 10^3/uL (150-450); RED BLOOD COUNT 3.97 10^6/uL (4.30-6.10); WHITE BLOOD COUNT 7.6 10^3/uL (4.0-10.0)
[2018-10-11 16:25] LABS: INR 1.1; PROTHROMBIN TIME 13.9 SECONDS (11.8-14.0)
[2018-10-11] MEDS ORDERED: ZOLO100T PO (16:31)
--- NOTE | 2018-10-11 16:36 | REP ---
Clinical: Acute chest pain . Comparison: 05/27/2017 . Findings: The mediastinum and cardiac silhouette are stable and within normal limits for portable technique. The lung johnson are clear without acute consolidation, effusion, or pneumothorax. Skeletal structures are intact. Impression: No acute cardiopulmonary process appreciated. Electronically Signed by Reginaldo Srinivasan MD 10/11/2018 04:28 P
[2018-10-11] MEDS ORDERED: METF500T13 PO (16:40)
[2018-10-11 16:48] LABS: ALT/SGPT 64 U/L (12-78); BILIRUBIN,TOTAL 0.6 MG/DL (0.2-1.0); BLOOD UREA NITROGEN 21 MG/DL (7-18); CALCIUM LEVEL 9.5 MG/DL (8.8-10.2); CARBON DIOXIDE LEVEL 28 MEQ/L (21-32); CHLORIDE LEVEL 104 MEQ/L (98-107); CK-MB VALUE MASS 1.6 NG/ML (<3.6); CPK CREATINE PHOSPHOKINASE 123 U/L (39-308); CREATININE FOR GFR 1.28 MG/DL (0.70-1.30); GLOMERULAR FILTRATION RATE > 60.0 (>49); GLUCOSE, FASTING 148 MG/DL (70-100); LIPASE 280 U/L (73-393); POTASSIUM SERUM 4.5 MEQ/L (3.5-5.1); SODIUM LEVEL 140 MEQ/L (136-145); TOTAL PROTEIN 7.3 GM/DL (6.4-8.2); TROPONIN I < 0.02 NG/ML (< 0.10)
[2018-10-11] MEDS ORDERED: ASPIRIN 81 MG CHEW TABLET PO ONE (17:15)
[2018-10-11] MEDS ORDERED: ISOVUE-370 76% 100ML VIAL (Q9967) As Ordered ONE (17:27)
[2018-10-11] MEDS: NITROGLYCERIN 0.4 MG SUBL TABLET SL PRN ×4 (18:01→18:14)
[2018-10-11 18:14] VITALS: BP 116/66
--- NOTE | 2018-10-11 19:03 | REPVR ---
EXAM: CT Angiography Chest With Contrast EXAM DATE/TIME: 10/11/2018 6:36 PM CLINICAL HISTORY: 62 years old, male; Other: R/O pe TECHNIQUE: Imaging protocol: Axial computed tomographic angiography images of the chest with intravenous contrast using CT angiography protocol. Coronal and sagittal reformatted images were created and reviewed. 3D rendering: MIP reconstructed images were created and reviewed. Radiation optimization: All CT scans at this facility use at least one of these dose optimization techniques: automated exposure control; mA and/or kV adjustment per patient size (includes targeted exams where dose is matched to clinical indication); or iterative reconstruction. Contrast material: ISOVUE 370; Contrast volume: 75 ml; Contrast route: IV; COMPARISON: CT ANGIO CHEST 05/27/2017 3:54 PM FINDINGS: Pulmonary arteries: There are no pulmonary emboli. Aorta: The aorta demonstrates mild atherosclerotic calcification. There is no aortic dissection or aneurysm. Thyroid: Redemonstration of thyromegaly with probable substernal thyroid nodules. Findings stable in comparison to the prior study. Lungs: There is bibasilar compressive atelectasis. Stable scar in the left apex. Lungs otherwise clear. Pleural space: Unremarkable. No pneumothorax. No pleural effusion. Heart: Coronary artery disease status post stenting in the left anterior descending and first diagonal branch. Lymph nodes: Small mediastinal lymph nodes likely postinflammatory. Bones/joints: The spine demonstrates mild degenerative changes. Osteoporosis. Soft tissues: Unremarkable. IMPRESSION: 1. There are no pulmonary emboli. 2. Redemonstration of thyromegaly with probable substernal thyroid nodules. Findings stable in comparison to the prior study. 3. There is no aortic dissection or aneurysm. COMMENT: Consistent with the [employer]'s Incidental Findings Committee Report (J Am Pauline Radiol 2015): Unless the patient has clinical risk factors for thyroid cancer or has suspicious findings characterized in this report, for patients under 35 years old any thyroid nodule less than 1.0 cm, and for patients at least 35 years old any thyroid nodule less than 1.5 cm is highly likely to be benign and does not require follow-up imaging or biopsy. Patients with limited life expectancy and/or comorbidities do not require follow up imaging or biopsy for nodules of any size. Electronically signed by: Issa Horvath On 10/11/2018 19:03:20 PM
--- NOTE | 2018-10-11 21:47 | ECGEPIP ---
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
[2018-10-11 22:38] LABS: CK-MB VALUE MASS 2.1 NG/ML (<3.6); MB/CK RELATIVE INDEX 1.79 (< OR =4); TROPONIN I 0.14 NG/ML (< 0.10)
[2018-10-11] MEDS ORDERED: HEPARIN DRIP 25,000 UNITS in APPROPRIATE DILUENT 1 EA IV SCH (23:24)
[2018-10-11] MEDS ORDERED: HEPARIN SOD (PORCINE) 5000 UNITS/ML VIAL IV ONE (23:30)
[2018-10-11] MEDS ORDERED: DEXTROSE 50% 50 ML SYRINGE As Ordered ONE (23:53)
[2018-10-11] MEDS ORDERED: DEXTROSE 50% 50 ML SYRINGE IV STA (23:56)
[2018-10-12] MEDS ORDERED: MORPHINE 2 MG/ML 1ML SYRINGE (J2270) IV ONE (00:30)
[2018-10-12] MEDS ORDERED: MORPHINE 2 MG/ML 1ML SYRINGE (J2270) As Ordered ONE (00:31)
[2018-10-12 02:31] VITALS: BP 156/67
--- NOTE | 2018-10-12 05:44 | ECGEPIP ---
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
--- NOTE | 2018-10-16 14:10 | ED PDOC ---
Post-Departure Follow-Up dr rose faxed formal report of cta chest for fu Piyush Shafer MD Oct 16, 2018 14:10
== END 2018-10-12 02:36 | disposition short-term general hospital (02) ==
LOC: M ED 15:52
DX: R00.1 Bradycardia, unspecified (principal); I44.4 Left anterior fascicular block; I20.0 Unstable angina; I25.10 Atherosclerotic heart disease of native coronary artery without angina pectoris; I25.2 Old myocardial infarction; E11.9 Type 2 diabetes mellitus without complications; I10 Essential (primary) hypertension; Z95.5 Presence of coronary angioplasty implant and graft; Z87.891 Personal history of nicotine dependence; Z79.82 Long term (current) use of aspirin; Z79.4 Long term (current) use of insulin; Z79.899 Other long term (current) drug therapy; Z91.018 Allergy to other foods; Z91.040 Latex allergy status; Z88.5 Allergy status to narcotic agent
CPT/HCPCS: 71045; 71275; 80053; 82550; 82553; 83690; 84484; 85025; 85610; 93005; 93041; 94760; 96374; 96375; 99291; J2270; Q9967

== ENCOUNTER → 2025-03-29 | Outpatient (REF) | payer OTHER, MEDICARE ==
[~2025-03-29] MED LIST changes: +ASPI-569 PO; -ASPI81TAEC PO; +CELE0.09 PO; -CELE1CAP9 PO; -GLIM4TAB PO; +GLIM4TAB5 PO; +METF500T13 PO; -MORP-38 PO; +MORP-69 PO; -SERT-155 PO; +SERT50TA29 PO; +ZOLO100T PO
== END ==
LOC: EEVIPCON 16:35 → M LAB REF 16:35
PROVIDERS: ATTEND Otolaryngology
DX: H65.21 Chronic serous otitis media, right ear (principal)